=== PATIENT | male | born 1990 | race Caucasian/White ===

== ENCOUNTER 2017-05-27 16:39 | Emergency (ER) | payer SELFPAY ==
[~2017-05-27] VITALS: Ht 185.4 cm; Wt 108.9 kg
[~2017-05-27 16:39] MED LIST: AMOXICILLIN500 MG PO; ANAPROX DS550 MG PO; AUGMENTIN 875 M1 TAB PO; CLARITIN10 MG PO; KEFLEX500 MG PO; MOTRIN600 MG PO; MOTRIN800 MG PO; NKHM; PHENERGAN W/DM120 ML PO; PREDNISONE20 MG PO; PROAIR HFA0.09 MG/AC INH; PROVENTIL0.09 MG/AC IH; VIBRAMYCIN100 MG PO; ZITHROMAX Z PA250 MG PO
== END 2017-05-27 18:47 | disposition home or self-care (01) ==
LOC: ED 16:39
DX: F41.0 Panic disorder [episodic paroxysmal anxiety] (principal); F12.10 Cannabis abuse, uncomplicated; J93.9 Pneumothorax, unspecified

== ENCOUNTER 2021-04-29 19:13 | Inpatient (IN) | payer SELFPAY ==
[~2021-04-29] VITALS: Ht 182.9 cm; Wt 96.4 kg
[2021-04-29 19:24] VITALS: BP 113/79
[2021-04-29 19:51] LABS: BASO % 0.3 % (0.0-1.0); EOS # 0.3 10*3/uL (0.0-0.4); EOS % 2.7 % (1.0-4.0); HEMATOCRIT 44.9 % (42.0-52.0); LYMPH # 1.9 10*3/uL (1.3-4.4); LYMPH % 19.5 % (27.0-41.0); MEAN CELL VOLUME 88.9 fl (80.0-94.0); MEAN CORPUSCULAR HGB 30.1 pg (27.0-31.0); MEAN CORPUSCULAR HGB CONC 33.9 g/dl (33.0-37.0); MEAN PLATELET VOLUME 10.2 fl (9.6-12.3); MONO # 0.9 10*3/uL (0.1-1.0); MONO % 8.9 % (3.0-9.0); NEUT # 6.6 10*3/uL (2.3-7.9); NEUT % 68.1 % (47.0-73.0); PLATELET COUNT AUTOMATED 219 10*3/uL (130-400); RED BLOOD COUNT 5.05 10*6/uL (4.50-5.90); WHITE BLOOD COUNT 9.7 10*3/uL (4.8-10.8)
[2021-04-29 20:00] VITALS: BP 130/76
[2021-04-29 20:06] LABS: ALKALINE PHOSPHATASE 79 U/L (45-117); BUN 11 mg/dl (7-24); CHLORIDE 108 mmol/L (98-107); CREATININE 0.96 mg/dL (0.70-1.30); LIPASE 101 U/L (73-393); POTASSIUM 3.7 mmol/L (3.5-5.1); SGOT/AST 9 IU/L (3-35); SGPT/ALT 18 U/L (12-78); SODIUM 135 mmol/L (136-145); TOTAL PROTEIN 7.4 gm/dL (6.4-8.2)
[2021-04-29 23:10] VITALS: BP 130/76
[2021-04-30] VITALS (11 sets, daily range): BP systolic 108–130; BP diastolic 69–81
[2021-04-30 06:18] LABS: ALBUMIN 3.7 gm/dl (3.1-4.5); BASO % 0.3 % (0.0-1.0); BUN 10 mg/dl (7-24); CHLORIDE 107 mmol/L (98-107); EOS # 0.2 10*3/uL (0.0-0.4); EOS % 2.6 % (1.0-4.0); HEMATOCRIT 42.7 % (42.0-52.0); LYMPH # 1.8 10*3/uL (1.3-4.4); LYMPH % 23.2 % (27.0-41.0); MEAN CELL VOLUME 90.1 fl (80.0-94.0); MEAN CORPUSCULAR HGB 29.7 pg (27.0-31.0); MEAN PLATELET VOLUME 10.6 fl (9.6-12.3); MONO # 0.7 10*3/uL (0.1-1.0); MONO % 8.7 % (3.0-9.0); NEUT % 64.7 % (47.0-73.0); PLATELET COUNT AUTOMATED 210 10*3/uL (130-400); POTASSIUM 4.1 mmol/L (3.5-5.1); RED BLOOD COUNT 4.74 10*6/uL (4.50-5.90); RED CELL DISTRI WIDTH 11.8 % (0-14.5); SODIUM 138 mmol/L (136-145); WHITE BLOOD COUNT 7.7 10*3/uL (4.8-10.8)
[2021-04-30 06:21] LABS: ALKALINE PHOSPHATASE 69 U/L (45-117); CREATININE 0.96 mg/dL (0.70-1.30); SGOT/AST 7 IU/L (3-35); SGPT/ALT 17 U/L (12-78); TOTAL PROTEIN 6.7 gm/dL (6.4-8.2)
[2021-05-01] VITALS: BP 127/72
[2021-05-01 06:34] LABS: BASO % 0.1 % (0.0-1.0); EOS % 0.1 % (1.0-4.0); HEMATOCRIT 43.4 % (42.0-52.0); LYMPH # 1.5 10*3/uL (1.3-4.4); MEAN CELL VOLUME 88.6 fl (80.0-94.0); MEAN CORPUSCULAR HGB CONC 33.9 g/dl (33.0-37.0); MEAN PLATELET VOLUME 10.7 fl (9.6-12.3); MONO # 1.2 10*3/uL (0.1-1.0); NEUT # 10.7 10*3/uL (2.3-7.9); NEUT % 79.4 % (47.0-73.0); PLATELET COUNT AUTOMATED 243 10*3/uL (130-400); RED CELL DISTRI WIDTH 11.8 % (0-14.5); WHITE BLOOD COUNT 13.5 10*3/uL (4.8-10.8)
[2021-05-01 06:46] LABS: BUN 11 mg/dl (7-24); CHLORIDE 106 mmol/L (98-107); CREATININE 0.94 mg/dL (0.70-1.30); POTASSIUM 4.2 mmol/L (3.5-5.1); SODIUM 136 mmol/L (136-145)
[2021-05-01 08:00] VITALS: BP 116/65
[2021-05-01 12:00] VITALS: BP 118/64
[2021-05-01] MEDS ORDERED: HYDROCODONE-AC1 EAC1 PO (15:53)
[2021-05-01 16:00] VITALS: BP 105/63
== END 2021-05-01 16:55 | disposition home or self-care (01) | DRG 342 ==
LOC: ED 19:13 → 4E 22:19 → EDHOLD 22:19 → 4E 22:54
PROVIDERS: Internal Medicine; Social Worker Clinical; ADMIT Student in an Organized Health Care Education/Training Program; ATTEND Student in an Organized Health Care Education/Training Program
PROC: 0DTJ4ZZ Resection of Appendix, Percutaneous Endoscopic Approach (ICD-10-PCS; principal; 2021-04-30)
PROC: 3E0T3BZ Introduction of Anesthetic Agent into Peripheral Nerves and Plexi, Percutaneous Approach (ICD-10-PCS; 2021-04-30)
PROC: 3E0T33Z Introduction of Anti-inflammatory into Peripheral Nerves and Plexi, Percutaneous Approach (ICD-10-PCS; 2021-04-30)
DX: K35.80 Unspecified acute appendicitis (principal); E87.1 Hypo-osmolality and hyponatremia; E87.8 Other disorders of electrolyte and fluid balance, not elsewhere classified; E83.41 Hypermagnesemia; Z80.1 Family history of malignant neoplasm of trachea, bronchus and lung